=== PATIENT | male | born 1970 | race Two or more races ===

== ENCOUNTER 2018-04-27 23:43 | Emergency (ER) | payer OTHER ==
[~2018-04-27] VITALS: Ht 167.6 cm; Wt 49.9 kg
[2018-04-28 02:36] VITALS: BP 129/84
== END 2018-04-28 02:48 ==
LOC: ER 23:53
DX: R51 Headache (principal); Z02.89 Encounter for other administrative examinations
CPT/HCPCS: 70450; 93005

== ENCOUNTER 2020-03-18 17:51 | Emergency (ER) | payer MEDICAID ==
[~2020-03-18] VITALS: Ht 167.6 cm; Wt 49.9 kg
[2020-03-18 20:06] VITALS: BP 156/96
== END 2020-03-18 20:08 | disposition home or self-care (01) ==
LOC: ER 17:51
DX: S46.811A Strain of other muscles, fascia and tendons at shoulder and upper arm level, right arm, initial encounter (principal); X58.XXXA Exposure to other specified factors, initial encounter; Y93.89 Activity, other specified; Y92.89 Other specified places as the place of occurrence of the external cause; Y99.8 Other external cause status
CPT/HCPCS: 93005